=== PATIENT | female | born 1935 | race Caucasian/White ===

== ENCOUNTER 2021-02-07 14:10 | Observation (INO) | payer BC, SELFPAY ==
[~2021-02-07] VITALS: Ht 167.6 cm; Wt 81.6 kg
[2021-02-07 14:21] VITALS: BP 115/62
--- NOTE | 2021-02-07 14:21 | NUR ---
PT PLACED IN C COLLAR PER MD ORDER, BACK INSPECTED DRY AND INTACT.
[2021-02-07] MEDS ORDERED: NACL 0.9% 500 ML IV ONE (14:25)
--- NOTE | 2021-02-07 14:43 | NUR ---
85 Y/O F BIBA FROM HOME, FAMILY NOTIFIED ARM THAT PT HAD UNWITNESSED FALL TO FLOOR, LAST KNOWN WELL TIME IS UNKNOWN AT THIS TIME. NO VISIBLE TRAUMA TO MOUTH, NECK, POSTERIOR HEAD OR BACK. MOUTH AND FINGERS ARE STAINED BLUE, PUPILS NOT PERRLA, R EYE REACTIVE TO LIGHT 3MM, L EYE NON REACTIVE 2 MM. PT IS CURRENTLY A&OX3 TO NAME, , AND PLACE. PT HAS GENERALIZED WEAKNESS AT THIS TIME. VISIBLE EDEMA ON BILATERAL LOWER EXTREMITIES, ABRASION ON R ELBOW. PMH: CARDIAC DISEASE (UNSPECIFIED BY [facility]), HYPERTHYROID NKA MED: GABAPENTIN, NORCO, LEVOTHYROXINE
--- NOTE | 2021-02-07 15:07 | NUR ---
CHECKER IN AT PT BEDSIDE.
[2021-02-07 15:35] LABS: BASOPHILS % (AUTO) 0.4 % (0.0-2.0); EOSINOPHILS # (AUTO) 0.2 K/uL (0-0.4); EOSINOPHILS % (AUTO) 3.2 % (0.0-4.0); HEMATOCRIT 40.9 % (36-48); HEMOGLOBIN 13.3 g/dL (12.0-16.0); LYMPHOCYTES # (AUTO) 1.5 K/uL (2.5-16.5); LYMPHOCYTES % (AUTO) 22.5 % (20.5-51.1); MEAN CORPUSCULAR HEMOGLOBIN 30 pg (27-31); MEAN CORPUSCULAR HGB CONC 33 g/dL (33-37); MEAN CORPUSCULAR VOLUME 90.4 fL (80-94); MONOCYTES # (AUTO) 0.6 K/uL (0.8-1.0); MONOCYTES % (AUTO) 9.5 % (1.7-9.3); NEUTROPHILS # (AUTO) 4.3 K/uL (1.8-7.7); NEUTROPHILS % (AUTO) 64.4 % (42.2-75.2); PLATELET COUNT (AUTO) 97 K/uL (140-450); RED BLOOD CELL COUNT(AUTO) 4.52 MIL/uL (4.20-5.40); RED CELL DISTRIBUTION WIDTH 13.6 % (11.6-13.7); WHITE BLOOD COUNT (AUTO) 6.6 K/uL (4.8-10.8)
[2021-02-07 16:16] LABS: ALBUMIN 3.9 g/dL (3.4-5.0); ASPARTATE AMINOTRANSFERASE 15 U/L (15-37); CHLORIDE 108 mmol/L (98-107); GLUCOSE 85 mg/dL (74-106); MAGNESIUM 2.2 mg/dL (1.8-2.4); PHOSPHORUS 3.5 mg/dL (2.5-4.9); SODIUM SERUM 142 mmol/L (136-145); THYROID STIMULATING HORMONE 1.65 uIU/mL (0.34-3.74); TOTAL BILIRUBIN 0.7 mg/dL (0.0-1.0); UREA NITROGEN, BLOOD 21 mg/dL (7-18)
--- NOTE | 2021-02-07 16:38 | NUR ---
PT FAMILY AT BEDSIDE.
[2021-02-07 17:13] LABS: APPEARANCE,URINE CLEAR (CLEAR); BILIRUBIN,URINE NEGATIVE (NEGATIVE); BLOOD, URINE TRACE-I (NEGATIVE); COLOR,URINE YELLOW (YELLOW); LEUKOCYTE ESTERASE ,URINE 1+ (NEGATIVE); NITRITE, URINE POSITIVE (NEGATIVE); UGLUCOSE NEGATIVE (NEGATIVE)
[2021-02-07 17:38] LABS: RBC,URINE 0-5 /HPF (0-5)
--- NOTE | 2021-02-07 17:40 | NUR ---
PT CHANGED INTO CLEAN DIAPER, REPOSITIONED IN BED. HOB ELEVATED FOR COMFORT, VSS, HADLEY L CONTINUE TO MONITOR.
--- NOTE | 2021-02-07 17:57 | NUR ---
DR. ABDUL AT PT BEDSIDE FOR FURTHER EVALUATION.
--- NOTE | 2021-02-07 18:13 | NUR ---
PT FAMILY AT BEDSIDE. PT UPDATES PROVIDED.
--- NOTE | 2021-02-07 18:15 | NUR ---
PT RETING, HOB ELEVATED, VSS, WILL CONTINUE TO MONITOR.
[2021-02-07] MEDS ORDERED: cefTRIAXone 1,000 MG VIAL ONE (18:29)
--- NOTE | 2021-02-07 18:58 | NUR ---
PYTHON ARCHITECT AT PT BEDSIDE.
--- NOTE | 2021-02-07 19:25 | NUR ---
RECEIVED REPORT FROM [place] [facility]ERS, FOR CONTINUITY OF CARE AT THIS TIME
--- NOTE | 2021-02-07 19:28 | NUR ---
COLLECTED MATTIE SWAB AND SENT TO LAB, HANDED TO SAMUEL WARD
--- NOTE | 2021-02-07 19:30 | NUR ---
GAVE REPORT TO TOMMY MASON. TRANSFER OF CARE AT THIS TIME.
--- NOTE | 2021-02-07 20:32 | NUR ---
CALLED FAMILY/ HOME PHONE FOR FAMILY, AND SPOKE TO TODD (SON) REGARDING AN UPDATE, FOR PT
[2021-02-07] MEDS ORDERED: MORPHINE SULFATE 4 MG/ML SYR IVP ONE (20:45)
--- NOTE | 2021-02-07 21:42 | NUR ---
PT WAS MOVED TO BED 11
[2021-02-07] MEDS ORDERED: SYN.05 PO (22:21)
[2021-02-07] MEDS ORDERED: GABA100C PO (22:21)
[2021-02-07] MEDS ORDERED: HYDR-5080 PO (22:21)
[2021-02-08] MEDS ORDERED: HYDROcodone/APAP 5/325 MG 1 TAB TAB PO PRN (01:30)
[2021-02-08] MEDS ORDERED: MORPHINE SULFATE 4 MG/ML SYR IVP PRN (01:30)
[2021-02-08] MEDS ORDERED: KCL 20 MEQ/WATER INJ PREMIX 200 ML IV PRN (01:30)
[2021-02-08] MEDS ORDERED: ONDANSETRON 4 MG/2 ML VIAL IVP PRN (01:30)
[2021-02-08] MEDS ORDERED: ACETAMINOPHEN 325 MG TAB PO PRN (01:30)
[2021-02-08] MEDS ORDERED: MAGNESIUM OXIDE 400 MG TAB PO PRN (01:30)
[2021-02-08] MEDS ORDERED: NACL 0.9% 1,000 ML IV SCH (01:30)
[2021-02-08] MEDS ORDERED: POTASSIUM CHLORIDE 10 MEQ TABER PO PRN (01:30)
[2021-02-08] MEDS ORDERED: MAG SULF 2000 MG/WATER PREMIX 50 ML IV PRN (01:30)
--- NOTE | 2021-02-08 03:00 | NUR ---
PT IS RESTING COMFORTABLY IN BED. ALL NEEDS MET AT THIS TIME. VSS
--- NOTE | 2021-02-08 04:50 | NUR ---
PT SAT ON THE EDGE OF THE BED, IV LINE REMOVED DUE TO MOVEMENT. REINSERTED IV LINE ON THE LT AC 20G. PT ASSISTED BACK ON THE BED. POSITIONED IN COMFORT. SIDERAILS UP X2 TO PREVENT FALLS
--- NOTE | 2021-02-08 06:10 | NUR ---
Patient appears to be resting comfortably in bed. Vital Signs within normal limits. Respirations even and unlabored.
--- NOTE | 2021-02-08 07:17 | NUR ---
GIVEN REPORT TO TOMMY STEELE. TRANSFER OF CARE AT THIS TIME
--- NOTE | 2021-02-08 08:08 | NUR ---
MRSA HAS BEEN SWABBED AT THIS TIME AND GIVEN TO [facility] AT THIS TIME. Patient appears to be resting comfortably in bed. Vital Signs within normal limits. Respirations even and unlabored.
[2021-02-08] MEDS ORDERED: DOCUSATE SODIUM 100 MG GELCAP PO SCH (09:00)
[2021-02-08] MEDS ORDERED: CEFD300C3 PO (11:21)
[2021-02-08] MEDS ORDERED: TRAM50TA1 PO (11:22)
--- NOTE | 2021-02-08 11:27 | NUR ---
PT ATTEMPTS TO GET OUT OF BED, UNABLE TO REDIRECT BACK INTO BED AT THIS TIME. PT ASSISTED BACK INTO LYING POSITION
--- NOTE | 2021-02-08 11:59 | NUR ---
SON (RODRIGO LOYD) NOTIFIED, FAMILY IS ON THEIR WAY TO COME [employer] PROFESSIONAL PT FOR DISCHARGE AT THIS TIME. MD STATES CASE MANAGEMENT WILL NEED TO BE CONTACTED FOR HOME HEALTH AND HOME PT. PT WILL BE DISCHARGED WITH TRAMADOL 50MG 1 TAB.
[2021-02-08 13:35] VITALS: BP 148/63
--- NOTE | 2021-02-08 13:35 | NUR ---
Patient discharged with v/s stable. Written and verbal after care instructions given and explained. Patient alert, oriented and verbalized understanding of instructions. Wheel Chair Assisted with by SON. All questions addressed prior to discharge. ID band removed. Patient advised to follow up with PMD. Rx of TRAMADOL given. Patient educated on indication of medication including possible reaction and side effects. Opportunity to ask questions provided and answered. PER DR SHAW, PT WILL BE DISCHARGED, CASE MANAGEMENT WILL ARRANGE HOME HEALTH AND PT AT HOME.
[2021-02-08] MEDS ORDERED: CARBIDOPA/LEVODOPA 50/200 MG TABER PO SCH (21:00)
[2021-02-09] MEDS ORDERED: LEVOTHYROXINE 0.05 MG TAB PO SCH (07:30)
--- NOTE | 2021-02-09 19:16 | NUR ---
LATE ENTRY- 0.9% NS BOLUS DISCONTINUED AT 1745
== END 2021-02-08 13:35 | disposition home or self-care (01) ==
LOC: MED 14:10 → MMU 02-08 01:35
PROVIDERS: ADMIT Hospitalist; ATTEND Hospitalist
DX: G93.41 Metabolic encephalopathy (principal); N39.0 Urinary tract infection, site not specified; Z20.822 Contact with and (suspected) exposure to COVID-19; E03.9 Hypothyroidism, unspecified; M85.80 Other specified disorders of bone density and structure, unspecified site; M19.90 Unspecified osteoarthritis, unspecified site; T14.8XXA Other injury of unspecified body region, initial encounter; W19.XXXA Unspecified fall, initial encounter; Y93.89 Activity, other specified; Y92.89 Other specified places as the place of occurrence of the external cause; Z79.899 Other long term (current) drug therapy; Z79.891 Long term (current) use of opiate analgesic
CPT/HCPCS: 36415; 70450; 71045; 72125; 73090; 73562; 73610; 80053; 81001; 83735; 84100; 84443; 84484; 85025; 87081; 87086; 87426; 93005; 96361; 96365; 96375; 97163; 97530; 99285; G0378; G0482; J0696; J2270; J7060